=== PATIENT | female | born 1965 | race Caucasian/White ===

== ENCOUNTER → 2016-08-01 | Outpatient (CLI) | payer BC ==
--- NOTE | 2016-08-01 13:05 | US ---
EXAMINATION TYPE: US kidneys/renal and bladder DATE OF EXAM: 08/01/2016 10:44 AM COMPARISON: NONE CLINICAL HISTORY: Renal insufficiency, N28.9. EXAM MEASUREMENTS: Right Kidney: 11.0 x 4.1 x 4.4 cm Left Kidney: 9.2 x 3.8 x 5.3 cm Right Kidney: inferior pole cyst 1.3cm Left Kidney: 0.9cm renal stone seen, 3.4cm hypoechoic, vascular, exophytic lesion seen inferiorly Bladder: wnl Bilateral Jets seen: no There is a simple appearing 1.3 cm cyst arising from the lower pole of the right kidney. There is a 9 .3 mm calculus seen in the lower pole of the left kidney. There is no evidence of hydronephrosis. The re is a 3.4 cm solid, vascular, exophytic lesion is seen arising in the lower pole of the left kidney . This is suspicious for malignancy. Neither ureteral jet was visualized. IMPRESSION: 1. SIMPLE APPEARING 1.3 CM RIGHT LOWER POLE RENAL CYST. 2. 9.3 MM, NONOBSTRUCTING LEFT RENAL CALCULUS. 3. 3.4 CM SOLID MASS ARISING FROM THE LOWER POLE OF THE LEFT KIDNEY, SUSPICIOUS FOR MALIGNANCY.
== END ==
LOC: RADUSWWP 10:26
PROVIDERS: ATTEND Family Medicine
DX: N20.0 Calculus of kidney (principal); N28.1 Cyst of kidney, acquired; N28.9 Disorder of kidney and ureter, unspecified
CPT/HCPCS: 76770

== ENCOUNTER → 2016-08-09 | Outpatient (CLI) | payer BC ==
--- NOTE | 2016-08-09 09:01 | CT ---
EXAMINATION TYPE: CT ChestAbdPelvis wo con DATE OF EXAM: 08/09/2016 8:47 AM COMPARISON: Previous ultrasound examination dated 08/01/2016. HISTORY: Lung mass and Lt renal mass CT DLP: 1090 mGycm Automated exposure control for dose reduction was used. TECHNIQUE: Helical acquisition through the abdomen and pelvis was obtained without oral contrast or i ntravenous contrast. The data was formatted in the axial, coronal and sagittal projections. FINDINGS: There is some atelectasis in the right middle lobe. There are emphysematous changes through out the lungs. There is atelectasis at the left lung base. There is no significant axillary, internal mammary, mediastinal or hilar adenopathy. There is no pleu ral or pericardial fluid. The heart is not enlarged. Within the abdomen, the liver, spleen and gallbladder appear normal. Both adrenal glands appear normal. There are multiple renal calculi on the left. No of these are obstructing. The largest is in the ante rior middle pole calyx and measures 6 mm. There is a 1.6 cm hyperdense lesion in the upper pole of th e left kidney. There is also a 3.4 x 3.4 x 2.9 cm solid mass arising from the lower pole of the left kidney. The right kidney appears normal. Limited views of the pancreas are normal. There is no significant retroperitoneal, iliac or inguinal adenopathy. The uterus and ovaries are not visualized. The bladder is unremarkable. Both the large and small bowel appear normal. The appendix is normal. There is no free fluid and no free air identified. There is hypertrophic spondylosis within the lumbar spine. No bony destructive lesion is seen. IMPRESSION: 1. 3.4 CM SOLID-APPEARING MASS ARISING FROM THE LOWER POLE OF THE LEFT KIDNEY. 2. HYPERDENSE LESION IN THE UPPER POLE OF THE LEFT KIDNEY MEASURING 1.6 CM. 3. NONOBSTRUCTING LEFT-SIDED NEPHROLITHIASIS. 4. EMPHYSEMATOUS CHANGES THROUGHOUT THE LUNGS. 5. MILD DEGENERATIVE CHANGE WITHIN THE SPINE.
== END | disposition home or self-care (01) ==
LOC: RADCTMAIN 07:56
PROVIDERS: ATTEND Family Medicine
DX: R91.8 Other nonspecific abnormal finding of lung field (principal); N20.0 Calculus of kidney; N28.89 Other specified disorders of kidney and ureter
CPT/HCPCS: 71250; 74176

== ENCOUNTER → 2016-08-26 | Outpatient (CLI) | payer BC ==
--- NOTE | 2016-08-27 16:19 | MR ---
MR kidneys with and without contrast HISTORY: Left renal mass Correlation to ultrasound kidneys 01 August 2016, CT chest abdomen pelvis one August 2016 Multiplanar multisequence and postcontrast images obtained through the kidneys following 12 cc MultiH ance IV The hyperdense cyst seen within the left kidney at the upper pole anteriorly in an exophytic location measuring approximately 19 mm shows no abnormal enhancement, there is a small cystic focus immediate ly adjacent measuring 8 mm which shows increased signal on T2-weighted images. Increased signal is no lon on T1-weighted images, low signal on T2-weighted sequences within the larger cyst. Lower pole of the left kidney shows caliectasis as well as scarring, there is an associated cyst measuring 9 mm med ially. The lower pole simple cyst in the right kidney is noted measuring approximately 13 to 14 mm and corre lates with patient's ultrasound. Small exophytic simple cyst present at the upper pole of the left ki dney adjacent to the spleen measures 1 cm. There is no retroperitoneal adenopathy. Aorta shows normal caliber. The adrenal glands are unremarkab le. Pancreas is within normal limits. The spleen and liver are normal. Gallbladder is unremarkable. IMPRESSION: There is no renal mass at the lower pole of left kidney. Scarring is present in the lower pole of the left kidney, there is associated caliectasis. Patient's renal calculi cannot evident on MRI. Anteriorly within the left kidney there is a probable proteinaceous cyst. There are associated s imple cysts within the kidneys. Consider follow-up to assess for stability.
== END | disposition home or self-care (01) ==
LOC: RADMRIMAIN 12:32
PROVIDERS: ATTEND Urology
DX: R93.422 Abnormal radiologic findings on diagnostic imaging of left kidney (principal)
CPT/HCPCS: 74183; A9577

== ENCOUNTER 2018-08-15 12:38 | Observation (INO) | payer OTHER ==
[2018-08-15] MEDS ORDERED: SODIUM CHLORIDE 0.9% 1,000 ML IV STA (13:04)
[2018-08-15] MEDS ORDERED: MAG HYDROX/AL HYDROX/SIMETH 30 ML, HYOSCYAMINE ELIXIR 10 ML, CIMETIDINE HCL 300 MG PO STA ×3 (13:05)
--- NOTE | 2018-08-15 13:07 | ED ---
General Adult HPI - General Chief complaint: Chest Pain Stated complaint: Chest pain Time Seen by Provider: 08/15/18 13:00 Source: patient, RN notes reviewed, old records reviewed Mode of arrival: wheelchair Limitations: no limitations - History of Present Illness Initial comments: 52-year-old female presented for evaluation of chest pain and lightheadedness. Patient's symptoms began approximately 2 hours prior to arrival. She was drinking a smoothie, developed some chest pain and epigastric pain. Shortly after the onset of her symptoms she became lightheaded. Had some nausea. Denied any vomiting. Denied any preceding symptoms, no palpitations. She states the pain moved from her sent over chest to the left side of her chest. No other pain. Symptoms have resolved at the time my evaluation with the exception of some lightheadedness. She has no history of CAD. Denies dyspnea. Denies right upper quadrant pain. No lower extremity pain or swelling. - Related Data Home Medications Medication Instructions Recorded Confirmed prednisoLONE [prednisoLONE Oral 1 drop BOTH EYES Q2H PRN 08/15/18 08/15/18 Soln] Allergies Allergy/AdvReac Type Severity Reaction Status Date / Time No Known Allergies Allergy Verified 08/15/18 14:29 Review of Systems ROS Statement: Those systems with pertinent positive or pertinent negative responses have been documented in the HPI. ROS Other: All systems not noted in ROS Statement are negative. Past Medical History Additional Past Medical History / Comment(s): MS History of Any Multi-Drug Resistant Organisms: None Reported Past Surgical History: Section, Hysterectomy Past Psychological History: No Psychological Hx Reported Smoking Status: Current every day smoker Past Alcohol Use History: None Reported Past Drug Use History: Marijuana General Exam Limitations: no limitations General appearance: alert, in no apparent distress Head exam: Present: atraumatic, normocephalic Eye exam: Present: normal appearance, PERRL ENT exam: Present: normal exam Neck exam: Present: normal inspection. Absent: tenderness, meningismus, full ROM Respiratory exam: Present: normal lung sounds bilaterally. Absent: respiratory distress, wheezes Cardiovascular Exam: Present: normal rhythm, bradycardia GI/Abdominal exam: Present: soft. Absent: distended, tenderness, guarding Extremities exam: Present: normal inspection, normal capillary refill. Absent: pedal edema, calf tenderness Neurological exam: Present: alert, oriented X3, CN II-XII intact. Absent: motor sensory deficit Psychiatric exam: Present: normal affect, normal mood Skin exam: Present: warm, dry, intact. 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 EKG is sinus bradycardia, no definitive signs of ischemia. Chest x-ray negative for any acute cardio pulmonary disease. Patient has normal CBC, CMP did show an elevated creatinine 1.6 with no known baseline. Troponin is negative. Patient will be kept in observation for serial clinic enzymes, telemetry, cardiology consultation. Case discussed with admitting physician Dr. Rodriguez. - Lab Data Result diagrams: 08/15/18 13:25 08/15/18 13:25 Lab Results 08/15/18 08/15/18 08/15/18 Range/Units 13:25 13:25 13:25 WBC 5.7 (3.8-10.6) k/uL RBC 4.29 (3.80-5.40) m/uL Hgb 13.1 (11.4-16.0) gm/dL Hct 38.4 (34.0-46.0) % MCV 89.5 (80.0-100.0) fL MCH 30.5 (25.0-35.0) pg MCHC 34.1 (31.0-37.0) g/dL RDW 16.4 H (11.5-15.5) % Plt Count 313 (150-450) k/uL Neutrophils % 50 % Lymphocytes % 32 % Monocytes % 12 % Eosinophils % 3 % Basophils % 1 % Neutrophils # 2.9 (1.3-7.7) k/uL Lymphocytes # 1.8 (1.0-4.8) k/uL Monocytes # 0.7 (0-1.0) k/uL Eosinophils # 0.2 (0-0.7) k/uL Basophils # 0.0 (0-0.2) k/uL Anisocytosis Slight PT (9.0-12.0) sec INR (<1.2) APTT (22.0-30.0) sec Sodium 140 (137-145) mmol/L Potassium 4.1 (3.5-5.1) mmol/L Chloride 106 (98-107) mmol/L Carbon Dioxide 25 (22-30) mmol/L Anion Gap 9 mmol/L BUN 24 H (7-17) mg/dL Creatinine 1.61 H (0.52-1.04) mg/dL Est GFR (CKD-EPI)AfAm 43 (>60 ml/min/1.73 sqM) Est GFR (CKD-EPI)NonAf 37 (>60 ml/min/1.73 sqM) Glucose 78 (74-99) mg/dL Calcium 9.8 (8.4-10.2) mg/dL Magnesium 2.0 (1.6-2.3) mg/dL Total Bilirubin 1.0 (0.2-1.3) mg/dL AST 28 (14-36) U/L ALT 35 (9-52) U/L Alkaline Phosphatase 89 (38-126) U/L Troponin I (0.000-0.034) ng/mL NT-Pro-B Natriuret Pep 354 pg/mL Total Protein 7.6 (6.3-8.2) g/dL Albumin 4.3 (3.5-5.0) g/dL Lipase 169 (23-300) U/L 08/15/18 08/15/18 Range/Units 13:25 13:25 WBC (3.8-10.6) k/uL RBC (3.80-5.40) m/uL Hgb (11.4-16.0) gm/dL Hct (34.0-46.0) % MCV (80.0-100.0) fL MCH (25.0-35.0) pg MCHC (31.0-37.0) g/dL RDW (11.5-15.5) % Plt Count (150-450) k/uL Neutrophils % % Lymphocytes % % Monocytes % % Eosinophils % % Basophils % % Neutrophils # (1.3-7.7) k/uL Lymphocytes # (1.0-4.8) k/uL Monocytes # (0-1.0) k/uL Eosinophils # (0-0.7) k/uL Basophils # (0-0.2) k/uL Anisocytosis PT 10.6 (9.0-12.0) sec INR 1.0 (<1.2) APTT 28.3 (22.0-30.0) sec Sodium (137-145) mmol/L Potassium (3.5-5.1) mmol/L Chloride (98-107) mmol/L Carbon Dioxide (22-30) mmol/L Anion Gap mmol/L BUN (7-17) mg/dL Creatinine (0.52-1.04) mg/dL Est GFR (CKD-EPI)AfAm (>60 ml/min/1.73 sqM) Est GFR (CKD-EPI)NonAf (>60 ml/min/1.73 sqM) Glucose (74-99) mg/dL Calcium (8.4-10.2) mg/dL Magnesium (1.6-2.3) mg/dL Total Bilirubin (0.2-1.3) mg/dL AST (14-36) U/L ALT (9-52) U/L Alkaline Phosphatase (38-126) U/L Troponin I <0.012 (0.000-0.034) ng/mL NT-Pro-B Natriuret Pep pg/mL Total Protein (6.3-8.2) g/dL Albumin (3.5-5.0) g/dL Lipase (23-300) U/L Disposition Clinical Impression: Chest pain Disposition: HOME SELF-CARE Condition: Stable Is patient prescribed a controlled substance at d/c from ED?: No Referrals: Heide Ocampo MD [Primary Care Provider] - 1-2 days Decision to Admit Reason: Admit from EC Decision Date: 08/15/18 Decision Time: 15:23
[2018-08-15 13:50] LABS: Anisocytosis Slight; Basophils % (A) 1 %; Eosinophils # (A) 0.2 k/uL (0-0.7); Eosinophils % (A) 3 %; HCT 38.4 % (34.0-46.0); HGB 13.1 gm/dL (11.4-16.0); Lymphocytes # (A) 1.8 k/uL (1.0-4.8); Lymphocytes % (A) 32 %; MCH 30.5 pg (25.0-35.0); MCHC 34.1 g/dL (31.0-37.0); MCV 89.5 fL (80.0-100.0); Mean Platelet Volume 10.4; Monocytes # (A) 0.7 k/uL (0-1.0); Monocytes % (A) 12 %; Neutrophils # (A) 2.9 k/uL (1.3-7.7); Neutrophils % (A) 50 %; Platelet Count 313 k/uL (150-450); RBC 4.29 m/uL (3.80-5.40); RDW 16.4 % (11.5-15.5); WBC 5.7 k/uL (3.8-10.6)
[2018-08-15 14:01] LABS: Albumin 4.3 g/dL (3.5-5.0); Calcium 9.8 mg/dL (8.4-10.2); Potassium 4.1 mmol/L (3.5-5.1); Total Protein 7.6 g/dL (6.3-8.2)
[2018-08-15 14:04] LABS: Partial Thromboplastin Time 28.3 sec (22.0-30.0); Prothrombin Time 10.6 sec (9.0-12.0)
--- NOTE | 2018-08-15 14:06 | XR ---
EXAMINATION TYPE: XR chest 2V DATE OF EXAM: 08/15/2018 HISTORY: Chest Pain. REFERENCE: Previous study dated 12/03/2011. FINDINGS: The lungs are clear. Pleural space are clear. The heart is not enlarged. IMPRESSION: NORMAL CHEST.
[2018-08-15] MEDS ORDERED: NALOXONE 0.4 MG/ML 1 ML VIAL IV PRN (15:08)
[2018-08-15] MEDS ORDERED: ACETAMINOPHEN TAB 325 MG TAB PO PRN (15:08)
[2018-08-15] MEDS ORDERED: ASPIRIN 325 MG TAB PO STA (15:10)
[2018-08-15] MEDS ORDERED: prednisoLONE ORAL SOLUTION 15MG/5ML CUP PO PRN (17:31)
[2018-08-15] MEDS ORDERED: prednisoLONE ACETATE 1% OPHTH DROPS 5 ML BTL BOTH EYES PRN (17:37)
[2018-08-15] MEDS: NICOTINE 14MG/24HR PATCH TRANSDERM SCH (18:07)
--- NOTE | 2018-08-16 07:02 | P.CRDCN ---
History of Present Illness Consult date: 08/16/18 Chief complaint: Chest pain History of present illness: This is a pleasant 52-year-old female patient with significant history of smoking and also history of kidney mass presented to the hospital complaining of chest discomfort. She was in her usual state of health when she woke up yesterday morning and was drinking smoothly when she started experiencing discomfort in the epigastric area as well as lower chest with some radiation to the back. She described the discomfort as a pressure/heaviness on the chest without any associated symptoms of shortness of breath, sweating, dizziness or lightheadedness, or syncope. She presented to the emergency room where at that point she was in mild discomfort and she was given aspirin with mild improvement in her symptoms. The EKG showed sinus bradycardia. The cardiac enzymes were checked and came in to be unremarkable. The chest x-ray did not show any acute abnormalities. The blood work indicate low GFR. The patient stated that she was diagnosed with kidney mass in the past and she was told that it was cured and she supposed to follow with a urologist but she did not follow up with anybody. On physical examination, the patient does have epigastric tenderness as well as right upper quadrant tenderness. I am ruling out intra-abdominal process before we rule out severe underlying coronary artery disease. Past Medical History Additional Past Medical History / Comment(s): MS History of Any Multi-Drug Resistant Organisms: None Reported Past Surgical History: Section, Hysterectomy Past Psychological History: No Psychological Hx Reported Smoking Status: Current every day smoker Past Alcohol Use History: None Reported Past Drug Use History: Marijuana Medications and Allergies Home Medications Medication Instructions Recorded Confirmed Type prednisoLONE [prednisoLONE Oral 1 drop BOTH EYES Q2H PRN 08/15/18 08/15/18 History Soln] Allergies Allergy/AdvReac Type Severity Reaction Status Date / Time No Known Allergies Allergy Verified 08/15/18 14:29 Physical Exam Vitals: Vital Signs Temp Pulse Pulse Pulse Resp BP BP 08/16/18 03:50 98.0 F 51 L 16 98/53 08/16/18 03:30 52 L 16 08/16/18 00:00 98.2 F 53 L 16 107/69 08/15/18 20:00 98.4 F 59 L 16 111/56 08/15/18 16:30 98.0 F 56 L 45 L 18 131/78 133/83 08/15/18 14:38 42 L 16 131/80 08/15/18 12:55 50 L 18 08/15/18 12:40 97.6 F 50 L 18 158/77 Pulse Ox 08/16/18 03:50 97 08/16/18 03:30 08/16/18 00:00 99 08/15/18 20:00 96 08/15/18 16:30 98 08/15/18 14:38 100 08/15/18 12:55 08/15/18 12:40 100 Intake and Output 08/15/18 08/15/18 08/16/18 14:59 22:59 06:59 Other: Voiding Method Toilet Toilet # Voids 1 1 Weight 54.431 kg - Constitutional General appearance: no acute distress - Respiratory Respiratory: bilateral: CTA - Cardiovascular Rhythm: regular Heart sounds: normal: S1, S2 Results 08/15/18 13:25 08/15/18 13:25 Cardiac Enzymes 08/15/18 08/15/18 08/15/18 Range/Units 13:25 13:25 20:08 AST 28 (14-36) U/L Troponin I <0.012 <0.012 (0.000-0.034) ng/mL 08/16/18 Range/Units 01:28 AST (14-36) U/L Troponin I <0.012 (0.000-0.034) ng/mL Coagulation 08/15/18 Range/Units 13:25 PT 10.6 (9.0-12.0) sec APTT 28.3 (22.0-30.0) sec CBC 08/15/18 Range/Units 13:25 WBC 5.7 (3.8-10.6) k/uL RBC 4.29 (3.80-5.40) m/uL Hgb 13.1 (11.4-16.0) gm/dL Hct 38.4 (34.0-46.0) % Plt Count 313 (150-450) k/uL Comprehensive Metabolic Panel 08/15/18 Range/Units 13:25 Sodium 140 (137-145) mmol/L Potassium 4.1 (3.5-5.1) mmol/L Chloride 106 (98-107) mmol/L Carbon Dioxide 25 (22-30) mmol/L BUN 24 H (7-17) mg/dL Creatinine 1.61 H (0.52-1.04) mg/dL Glucose 78 (74-99) mg/dL Calcium 9.8 (8.4-10.2) mg/dL AST 28 (14-36) U/L ALT 35 (9-52) U/L Alkaline Phosphatase 89 (38-126) U/L Total Protein 7.6 (6.3-8.2) g/dL Albumin 4.3 (3.5-5.0) g/dL Current Medications Generic Name Dose Route Start Last Admin Trade Name Freq PRN Reason Stop Dose Admin Acetaminophen 650 mg 08/15/18 15:08 Tylenol Tab PO Q6HR PRN Mild Pain or Fever > 100.5 Aspirin 325 mg 08/16/18 09:00 Aspirin PO DAILY ARIANNE Naloxone HCl 0.2 mg 08/15/18 15:08 Narcan IV Q2M PRN Opioid Reversal Nicotine 1 patch 08/15/18 17:45 08/15/18 18:07 Habitrol 14mg/24hr Patch TRANSDERM 1 patch DAILY ARIANNE Administration Pantoprazole Sodium 40 mg 08/16/18 09:00 Protonix IV DAILY ARIANNE Prednisolone Acetate 1 drops 08/15/18 17:37 08/15/18 18:07 Pred Forte 1% BOTH EYES 1 drops Q2HR PRN Administration dry eyes Intake and Output 08/15/18 08/15/18 08/16/18 14:59 22:59 06:59 Other: Voiding Method Toilet Toilet # Voids 1 1 Weight 54.431 kg Patient Weight 08/16/18 06:59 Weight 54.431 kg 08/15/18 13:25 08/15/18 13:25 Assessment and Plan Assessment: Assessment #1 atypical chest discomfort/epigastric discomfort #2 significant history of smoking #3 chronic kidney disease Plan #1 acute coronary event was ruled out #2 rule out intra-abdominal/gallbladder disease #3 rule out severe coronary artery disease #4 obtain ultrasound of the abdomen #5 stress test, if the ultrasound of the abdomen is negative #6 echocardiogram was Doppler Thank you for allowing us participate in her care
--- NOTE | 2018-08-16 08:15 | US ---
EXAMINATION TYPE: US gallbladder DATE OF EXAM: 08/16/2018 COMPARISON: NONE CLINICAL HISTORY: epigastric pain. Epigastric pain, nausea EXAM MEASUREMENTS: Liver Length: 14.4 cm Gallbladder Wall: 0.3 cm CBD: 0.3 cm Right Kidney: 10.5 x 4.2 x 5.0 cm Pancreas: slightly heterogeneous Liver: appears wnl Gallbladder: thick folds noted with possible sludge Evidence for sonographic Khoury's sign: no CBD: wnl Right Kidney: cystic area lower pole = 0.9 x 0.6 x 0.7cm IMPRESSION: 1. Thickened gallbladder folds with underlying sludge. No wall thickening or pericholecystic fluid id entified. 2. Simple cyst right kidney.
[2018-08-16 09:10] LABS: Basophils % (A) 1 %; Eosinophils # (A) 0.3 k/uL (0-0.7); Eosinophils % (A) 5 %; HCT 36.9 % (34.0-46.0); Lymphocytes # (A) 1.4 k/uL (1.0-4.8); Lymphocytes % (A) 25 %; MCH 30.4 pg (25.0-35.0); MCHC 32.6 g/dL (31.0-37.0); MCV 93.3 fL (80.0-100.0); Mean Platelet Volume 7.1; Monocytes # (A) 0.6 k/uL (0-1.0); Monocytes % (A) 10 %; Neutrophils # (A) 3.4 k/uL (1.3-7.7); Neutrophils % (A) 58 %; Platelet Count 296 k/uL (150-450); RBC 3.95 m/uL (3.80-5.40); RDW 13.8 % (11.5-15.5); WBC 5.8 k/uL (3.8-10.6)
[2018-08-16 09:25] LABS: Calcium 9.9 mg/dL (8.4-10.2); Potassium 5.2 mmol/L (3.5-5.1); Total Bilirubin 0.8 mg/dL (0.2-1.3); Total Protein 7.2 g/dL (6.3-8.2)
[2018-08-16] MEDS ORDERED: SODIUM POLYSTYRENE SULFONATE 15 GM/60 ML BOTTLE PO STA (10:49)
[2018-08-16] MEDS ORDERED: ONDANSETRON 4 MG/2 ML VIAL IVP PRN (10:51)
--- NOTE | 2018-08-16 10:59 | P.HPIM ---
History of Present Illness H&P Date: 08/16/18 This is a 52-year-old female patient of Dr. Ocampo. Patient presented to the ER with complaints of lightheadedness and upper gastric chest pain. Patient reports that symptoms started approximately 2 hours before arriving to ER was consistent. Patient reports the pain felt like a pressure and radiated under her rib cage to back. Patient does reports she had some nausea with episode. Patient denies any diaphoresis. She denies any recent cough or illness. Patient denies any significant cardiac history for herself. Patient denies any family history of heart attacks or cardiac conditions. Patient denies any history of blood clots. Patient does have a past medical history of , hysterectomy, nicotine dependence multiple sclerosis. Patient does believe she was seen by loop puller in the past, but patient unsure of the details of her kidneys. Troponins have been negative 3. Chest x-ray completed showing normal chest. EKG completed showing sinus bradycardia with premature atrial complexes with aberrant conduction. Ultrasound of gallbladder completed showing thickened gallbladder folds with underlining sludge. No wall thickening or pericholecystic fluid identified. Simple cyst right kidney. At this time patient denies any chest pain or shortness of breath. Patient denies nausea vomiting or diarrhea. Patient denies any urinary burning or frequency. Surgical services and cardiology services consulted Review of Systems Please refer to HPI otherwise unremarkable Past Medical History Additional Past Medical History / Comment(s): MS History of Any Multi-Drug Resistant Organisms: None Reported Past Surgical History: Section, Hysterectomy Past Psychological History: No Psychological Hx Reported Smoking Status: Current every day smoker Past Alcohol Use History: None Reported Past Drug Use History: Marijuana Medications and Allergies Home Medications Medication Instructions Recorded Confirmed Type prednisoLONE [prednisoLONE Oral 1 drop BOTH EYES Q2H PRN 08/15/18 08/15/18 Hist ory Soln] Allergies Allergy/AdvReac Type Severity Reaction Status Date / Time No Known Allergies Allergy Verified 08/15/18 14:29 Physical Exam Vitals: Vital Signs Temp Pulse Pulse Pulse Resp BP BP 08/16/18 07:05 97.7 F 57 L 16 126/45 08/16/18 03:50 98.0 F 51 L 16 98/53 08/16/18 03:30 52 L 16 08/16/18 00:00 98.2 F 53 L 16 107/69 08/15/18 20:00 98.4 F 59 L 16 111/56 08/15/18 16:30 98.0 F 56 L 45 L 18 131/78 133/83 08/15/18 14:38 42 L 16 131/80 08/15/18 12:55 50 L 18 08/15/18 12:40 97.6 F 50 L 18 158/77 Pulse Ox 08/16/18 07:05 98 08/16/18 03:50 97 08/16/18 03:30 08/16/18 00:00 99 08/15/18 20:00 96 08/15/18 16:30 98 08/15/18 14:38 100 08/15/18 12:55 08/15/18 12:40 100 Intake and Output 08/15/18 08/16/18 08/16/18 22:59 06:59 14:59 Other: Voiding Method Toilet Toilet Toilet # Voids 1 1 Head normocephalic Neck supple Lungs clear to auscultation bilaterally no wheezing or crackles Heart regular rate and rhythm S1-S2, no rub or gallop Abdomen is soft nontender nondistended positive bowel sounds no hepatosplenomegaly Extremities no edema Neuro alert and orientated to 3 Results CBC & Chem 7: 08/16/18 08:30 08/16/18 08:30 Labs: Abnormal Lab Results - Last 24 Hours (Table) 08/15/18 08/15/18 08/16/18 Range/Units 13:25 13:25 08:30 RDW 16.4 H (11.5-15.5) % Potassium 5.2 H (3.5-5.1) mmol/L Chloride 108 H (98-107) mmol/L BUN 24 H 26 H (7-17) mg/dL Creatinine 1.61 H 1.64 H (0.52-1.04) mg/dL Thrombosis Risk Factor Assmnt - Choose All That Apply Any of the Below Risk Factors Present?: Yes Each Factor Represents 1 point: Age 41-60 years Other Risk Factors: No Thrombosis Risk Factor Assessment Total Risk Factor Score: 1 Thrombosis Risk Factor Assessment Level: Low Risk Assessment and Plan Assessment: 1. Chest pain with epigastric pain. Troponins negative 3. Chest x-ray completed showing normal chest. EKG completed showing sinus bradycardia with premature atrial complexes with aberrant conduction. Cardiology services have been consulted. Gallbladder ultrasound showing thickened gallbladder fold underlying sludge. No wall thickening or pericholecystic fluid identified. 2. Acute kidney injury. Creatinine 1.64 and bun 26. Patient reports she has seen a loop puller in the past but unsure for what exact issues. Continue normal saline at 75 3. Hyperkalemia. Potassium 5.2. Kayexalate has been ordered recheck today at 1400 4. History of multiple sclerosis. Patient denies seen any neurologist at this time. Reports she has seen one in the past 5. History of 6. History of nicotine dependence. Patient educated greater than 3 minutes on smoking patient. Nicotine patch has been ordered DVT prophylaxis SCDs due to possible surgical evaluation. GI prophylaxis Protonix Time with Patient: Greater than 30 (Greater than 60% of the total time spent in counseling and coordination of care. I performed an examination of the patient and discussed their management with the Nurse Practitioner. I have reviewed the Nurse Practitioner's notes and agree with the documented findings and plan of care)
[2018-08-16] MEDS: ASPIRIN 325 MG TAB PO SCH (11:05)
[2018-08-16] MEDS: SODIUM CHLORIDE 0.9% 1,000 ML IV SCH (11:12)
[2018-08-16] MEDS: NICOTINE 14MG/24HR PATCH TRANSDERM SCH (11:12)
[2018-08-16] MEDS: PANTOPRAZOLE 40 MG/10 ML VIAL IV SCH (11:12)
--- NOTE | 2018-08-16 12:08 | P.GSCN ---
<Nilda Ruiz - Last Filed: 08/16/18 12:08> History of Present Illness Consult date: 08/16/18 Reason for Consult: sludge in gallbladder Requesting physician: Davida Calero History of present illness: CHIEF COMPLAINT: Chest pain HISTORY OF PRESENT ILLNESS: 52-year-old female who presented to emergency room with a chief complaint of chest pain. Abdominal ultrasound was obtained revealing thickened gallbladder fold with underlying sludge. No wall thickening or periholecystic fluid identified. General surgery was consulted for further evaluation. Patient reports she began having epigastric pain that radiated to the left side of her chest after drinking some juice at home. She denies abdominal pain. Denies right upper quadrant pain. Denies nausea or vomiting. Denies diarrhea or constipation. Patient denies history of gallbladder problems in the past. Denies history of EGD. PAST MEDICAL HISTORY: See list. PAST SURGICAL HISTORY: See list. SOCIAL HISTORY: No illicit drug use. REVIEW OF SYSTEMS: CONSTITUTIONAL: Denies fever or chills. HEENT: Denies blurred vision, vision changes, or eye pain. Denies hemoptysis CARDIOVASCULAR: Denies chest pain or pressure. RESPIRATORY: No shortness of breath. GASTROINTESTINAL: Refer to HPI for pertinent findings HEMATOLOGIC: Denies bleeding disorders. GENITOURINARY: Denies any blood in urine. SKIN: Denies pruitis. Denies rash. PHYSICAL EXAM: VITAL SIGNS: Reviewed. GENERAL: Well-developed in no acute distress. HEENT: No sclera icterus. Extraocular movements grossly intact. Moist buccal mucosa. Head is atraumatic, normocephalic. ABDOMEN: Soft. Nondistended. Nontender. Tenderness upon palpation of epigastri c region. NEUROLOGIC: Alert and oriented. Cranial nerves II through XII grossly intact. ASSESSMENT: 1. Epigastric pain 2. Gallbladder dysfunction, US reveals thickened gallbladder fold with underlying sludge PLAN: Patient to undergo laparoscopic cholecystectomy with Dr. Judge tomorrow 08/17/2017 Nurse practitioner note has been reviewed by physician. Signing provider agrees with the documented findings, assessment, and plan of care. Past Medical History Additional Past Medical History / Comment(s): MS History of Any Multi-Drug Resistant Organisms: None Reported Past Surgical History: Section, Hysterectomy Past Psychological History: No Psychological Hx Reported Smoking Status: Current every day smoker Past Alcohol Use History: None Reported Past Drug Use History: Marijuana Medications and Allergies Home Medications Medication Instructions Recorded Confirmed Type prednisoLONE [prednisoLONE Oral 1 drop BOTH EYES Q2H PRN 08/15/18 08/15/18 History Soln] Allergies Allergy/AdvReac Type Severity Reaction Status Date / Time No Known Allergies Allergy Verified 08/15/18 14:29 Surgical - Exam Vital Signs Temp Pulse Resp BP Pulse Ox 97.6 F 50 L 18 158/77 100 08/15/18 12:40 08/15/18 12:40 08/15/18 12:40 08/15/18 12:40 08/15/18 12:40 Results - Labs 08/16/18 08:30 08/16/18 08:30 Abnormal Lab Results - Last 24 Hours (Table) 08/15/18 08/15/18 08/16/18 Range/Units 13:25 13:25 08:30 RDW 16.4 H (11.5-15.5) % Potassium 5.2 H (3.5-5.1) mmol/L Chloride 108 H (98-107) mmol/L BUN 24 H 26 H (7-17) mg/dL Creatinine 1.61 H 1.64 H (0.52-1.04) mg/dL Diabetes panel 08/15/18 08/16/18 Range/Units 13:25 08:30 Sodium 140 141 (137-145) mmol/L Potassium 4.1 5.2 H (3.5-5.1) mmol/L Chloride 106 108 H (98-107) mmol/L Carbon Dioxide 25 25 (22-30) mmol/L BUN 24 H 26 H (7-17) mg/dL Creatinine 1.61 H 1.64 H (0.52-1.04) mg/dL Glucose 78 86 (74-99) mg/dL Calcium 9.8 9.9 (8.4-10.2) mg/dL AST 28 26 (14-36) U/L ALT 35 29 (9-52) U/L Alkaline Phosphatase 89 84 (38-126) U/L Total Protein 7.6 7.2 (6.3-8.2) g/dL Albumin 4.3 4.0 (3.5-5.0) g/dL Calcium panel 08/15/18 08/16/18 Range/Units 13:25 08:30 Calcium 9.8 9.9 (8.4-10.2) mg/dL Albumin 4.3 4.0 (3.5-5.0) g/dL Pituitary panel 08/15/18 08/16/18 Range/Units 13:25 08:30 Sodium 140 141 (137-145) mmol/L Potassium 4.1 5.2 H (3.5-5.1) mmol/L Chloride 106 108 H (98-107) mmol/L Carbon Dioxide 25 25 (22-30) mmol/L BUN 24 H 26 H (7-17) mg/dL Creatinine 1.61 H 1.64 H (0.52-1.04) mg/dL Glucose 78 86 (74-99) mg/dL Calcium 9.8 9.9 (8.4-10.2) mg/dL Adrenal panel 08/15/18 08/16/18 Range/Units 13:25 08:30 Sodium 140 141 (137-145) mmol/L Potassium 4.1 5.2 H (3.5-5.1) mmol/L Chloride 106 108 H (98-107) mmol/L Carbon Dioxide 25 25 (22-30) mmol/L BUN 24 H 26 H (7-17) mg/dL Creatinine 1.61 H 1.64 H (0.52-1.04) mg/dL Glucose 78 86 (74-99) mg/dL Calcium 9.8 9.9 (8.4-10.2) mg/dL Total Bilirubin 1.0 0.8 (0.2-1.3) mg/dL AST 28 26 (14-36) U/L ALT 35 29 (9-52) U/L Alkaline Phosphatase 89 84 (38-126) U/L Total Protein 7.6 7.2 (6.3-8.2) g/dL Albumin 4.3 4.0 (3.5-5.0) g/dL <Antonino Judge - Last Filed: 08/17/18 11:31> Surgical - Exam Vital Signs Temp Pulse Resp BP Pulse Ox 97.6 F 50 L 18 158/77 100 08/15/18 12:40 08/15/18 12:40 08/15/18 12:40 08/15/18 12:40 08/15/18 12:40 Results - Labs 08/17/18 06:11 08/17/18 06:11 Abnormal Lab Results - Last 24 Hours (Table) 08/17/18 08/17/18 Range/Units 06:11 06:11 RBC 3.74 L (3.80-5.40) m/uL Hgb 11.3 L (11.4-16.0) gm/dL Chloride 112 H (98-107) mmol/L BUN 22 H (7-17) mg/dL Creatinine 1.59 H (0.52-1.04) mg/dL Diabetes panel 08/16/18 08/17/18 Range/Units 14:03 06:11 Sodium 142 (137-145) mmol/L Potassium 4.6 4.5 (3.5-5.1) mmol/L Chloride 112 H (98-107) mmol/L Carbon Dioxide 24 (22-30) mmol/L BUN 22 H (7-17) mg/dL Creatinine 1.59 H (0.52-1.04) mg/dL Glucose 88 (74-99) mg/dL Calcium 9.2 (8.4-10.2) mg/dL AST 23 (14-36) U/L ALT 29 (9-52) U/L Alkaline Phosphatase 77 (38-126) U/L Total Protein 6.6 (6.3-8.2) g/dL Albumin 3.5 (3.5-5.0) g/dL Calcium panel 08/17/18 Range/Units 06:11 Calcium 9.2 (8.4-10.2) mg/dL Albumin 3.5 (3.5-5.0) g/dL Pituitary panel 08/16/18 08/17/18 Range/Units 14:03 06:11 Sodium 142 (137-145) mmol/L Potassium 4.6 4.5 (3.5-5.1) mmol/L Chloride 112 H (98-107) mmol/L Carbon Dioxide 24 (22-30) mmol/L BUN 22 H (7-17) mg/dL Creatinine 1.59 H (0.52-1.04) mg/dL Glucose 88 (74-99) mg/dL Calcium 9.2 (8.4-10.2) mg/dL Adrenal panel 08/16/18 08/17/18 Range/Units 14:03 06:11 Sodium 142 (137-145) mmol/L Potassium 4.6 4.5 (3.5-5.1) mmol/L Chloride 112 H (98-107) mmol/L Carbon Dioxide 24 (22-30) mmol/L BUN 22 H (7-17) mg/dL Creatinine 1.59 H (0.52-1.04) mg/dL Glucose 88 (74-99) mg/dL Calcium 9.2 (8.4-10.2) mg/dL Total Bilirubin 0.7 (0.2-1.3) mg/dL AST 23 (14-36) U/L ALT 29 (9-52) U/L Alkaline Phosphatase 77 (38-126) U/L Total Protein 6.6 (6.3-8.2) g/dL Albumin 3.5 (3.5-5.0) g/dL Assessment and Plan Assessment: Chronic cholecystitis with cholelithiasis and sludge. Patient will undergo laparoscopic cholecystectomy..
[2018-08-17] MEDS: SODIUM CHLORIDE 0.9% 1,000 ML IV SCH ×2 (00:50→13:46)
[2018-08-17 06:43] LABS: Albumin 3.5 g/dL (3.5-5.0); Calcium 9.2 mg/dL (8.4-10.2); Potassium 4.5 mmol/L (3.5-5.1); Total Bilirubin 0.7 mg/dL (0.2-1.3); Total Protein 6.6 g/dL (6.3-8.2)
[2018-08-17 08:46] LABS: Basophils % (A) 0 %; Eosinophils # (A) 0.3 k/uL (0-0.7); Eosinophils % (A) 5 %; HCT 34.9 % (34.0-46.0); HGB 11.3 gm/dL (11.4-16.0); Lymphocytes # (A) 1.6 k/uL (1.0-4.8); Lymphocytes % (A) 31 %; MCH 30.3 pg (25.0-35.0); MCHC 32.5 g/dL (31.0-37.0); MCV 93.4 fL (80.0-100.0); Mean Platelet Volume 8.2; Monocytes # (A) 0.7 k/uL (0-1.0); Monocytes % (A) 14 %; Neutrophils # (A) 2.5 k/uL (1.3-7.7); Neutrophils % (A) 47 %; Platelet Count 294 k/uL (150-450); RBC 3.74 m/uL (3.80-5.40); RDW 13.9 % (11.5-15.5); WBC 5.2 k/uL (3.8-10.6)
[2018-08-17] MEDS ORDERED: IV FLUID CONTINUATION 1,000 ML IV ONE (10:37)
[2018-08-17] MEDS ORDERED: CITRIC ACID-SODIUM CITRATE 15 ML CUP PO ONE (10:53)
[2018-08-17] MEDS: ASPIRIN 325 MG TAB PO SCH (10:58)
[2018-08-17] MEDS: PANTOPRAZOLE 40 MG/10 ML VIAL IV SCH (10:58)
[2018-08-17] MEDS ORDERED: DEXAMETHASONE SOD PHOSPHATE 10 MG/ML 1 ML VIAL IV ONE (11:14)
[2018-08-17] MEDS: ONDANSETRON 4 MG/2 ML VIAL IVP ONE ×2 (11:14→13:00)
--- NOTE | 2018-08-17 11:30 | P.PN ---
Progress Note - Text Progress Note Date: 08/17/18 Patient states that she had some complaints of right quadrant pain last night. Patient will undergo laparoscopic cholecystectomy today.
[2018-08-17] MEDS ORDERED: HEPARIN SODIUM,PORCINE 5,000 UNIT/ML 1 ML VIAL SQ ONE (11:35)
[2018-08-17] MEDS ORDERED: ceFAZolin (PMX-bag) 2,000 MG in DEXTROSE/WATER 1 50ML.BAG IVPB STA (11:40)
--- NOTE | 2018-08-17 11:44 | P.PN ---
Subjective Progress Note Date: 08/17/18 This is a 52-year-old female patient of Dr. Ocampo. Patient presented to the ER with complaints of lightheadedness and upper gastric chest pain. Patient reports that symptoms started approximately 2 hours before arriving to ER was consistent. Patient reports the pain felt like a pressure and radiated under her rib cage to back. Patient does reports she had some nausea with episode. Patient denies any diaphoresis. She denies any recent cough or illness. Patient denies any significant cardiac history for herself. Patient denies any family history of heart attacks or cardiac conditions. Patient denies any history of blood clots. Patient does have a past medical history of , hysterectomy, nicotine dependence multiple sclerosis. Patient does believe she was seen by leaf stamper in the past, but patient unsure of the details of her kidneys. Troponins have been negative 3. Chest x-ray completed showing normal chest. EKG completed showing sinus bradycardia with premature atrial complexes with aberrant conduction. Ultrasound of gallbladder completed showing thickened gallbladder folds with underlining sludge. No wall thickening or pericholecystic fluid identified. Simple cyst right kidney. At this time patient denies any chest pain or shortness of breath. Patient denies nausea vomiting or diarrhea. Patient denies any urinary burning or frequency. Surgical services and cardiology services consulted On 08/17/2017 patient is alert and oriented 3. Patient to undergo lap krishna today per surgical services. Patient still having some questions regarding surgical procedure. Surgical [employer] updated the patient would like to talk with surgical team. Nephrology services also consulted due to patient's elevated creatinine and body. Patient did have hyperkalemia yesterday. Was given Kayexalate. Creatinine improving to 1.59 and bun 22. Potassium 4.5. At this time patient denies chest pain or shortness breath. Patient denies nausea vomiting or diarrhea. Patient denies any urinary burning or frequency Objective - Vital Signs Vital signs: Vital Signs Temp 98.6 F 08/17/18 10:57 Pulse 98 08/17/18 10:57 Resp 16 08/17/18 10:57 BP 119/70 08/17/18 10:57 Pulse Ox 98 08/17/18 10:57 Intake & Output 08/16/18 08/17/18 08/17/18 18:59 06:59 18:59 Intake Total 200 Balance 200 Intake: Oral 200 Other: Voiding Method Toilet Toilet Toilet # Voids 1 2 - Exam Head normocephalic Neck supple Lungs clear to auscultation bilaterally no wheezing or crackles Heart regular rate and rhythm S1-S2, no rub or gallop Abdomen is soft nontender nondistended positive bowel sounds no hepatosplenomegaly Extremities no edema Neuro alert and orientated to 3 - Labs CBC & Chem 7: 08/17/18 06:11 08/17/18 06:11 Labs: Abnormal Lab Results - Last 24 Hours (Table) 08/17/18 08/17/18 Range/Units 06:11 06:11 RBC 3.74 L (3.80-5.40) m/uL Hgb 11.3 L (11.4-16.0) gm/dL Chloride 112 H (98-107) mmol/L BUN 22 H (7-17) mg/dL Creatinine 1.59 H (0.52-1.04) mg/dL Assessment and Plan Assessment: 1. Chest pain with epigastric pain. Troponins negative 3. Chest x-ray comple lon showing normal chest. EKG completed showing sinus bradycardia with premature atrial complexes with aberrant conduction. Cardiology services have been consulted. 2. Acute kidney injury. Creatinine 1.64 and bun 26. Patient reports she has seen a leaf stamper in the past but unsure for what exact issues. Continue normal saline at 75. Nephrology services have been consulted. Creatinine is improving to 1.59 and bun 22 3. Hyperkalemia. Potassium 5.2. Kayexalate has been ordered recheck today at 1400. Repeat potassium 4.5 4. History of multiple sclerosis. Patient denies seen any neurologist at this time. Reports she has seen one in the past 5. History of 6. History of nicotine dependence. Patient educated greater than 3 minutes on smoking patient. Nicotine patch has been ordered 7. Gallbladder dysfunction, ultrasound revealed thickened gallbladder fold with underlying sludge. Patient will undergo lap cholecystectomy with Dr. Hobbs today. DVT prophylaxis SCDs due to possible surgical evaluation. GI prophylaxis Protonix I performed an examination of the patient and discussed their management with the Nurse Practitioner. I have reviewed the Nurse Practitioner's notes and agree with the documented findings and plan of care
[2018-08-17] MEDS ORDERED: ROCURONIUM BROMIDE 10 MG/ML 10 ML VIAL IV ONE (11:57)
[2018-08-17] MEDS ORDERED: fentaNYL (PF) 50 MCG/ML 2 ML AMP ONE (11:57)
[2018-08-17] MEDS ORDERED: PROPOFOL 10 MG/ML 20 ML VIAL IV ONE (11:57)
[2018-08-17] MEDS ORDERED: SUCCINYLCHOLINE CHLORIDE 100 MG/5 ML SYR IV ONE (11:57)
[2018-08-17] MEDS ORDERED: NEOSTIGMINE 1 MG/ML 10 ML VIAL ONE (11:57)
[2018-08-17] MEDS ORDERED: GLYCOPYRROLATE 0.2 MG/ML 2 ML VIAL ONE (11:57)
[2018-08-17] MEDS ORDERED: MIDAZOLAM 2 MG/2 ML VIAL ONE (11:57)
[2018-08-17] MEDS ORDERED: LIDOCAINE 1% INJ 10MG/ML (20 ML MDV) ONE (11:57)
[2018-08-17] MEDS ORDERED: BUPIVACAIN-EPI 0.5%-1:200,000 30 ML VIAL SQ ONE (12:27)
[2018-08-17] MEDS: ceFAZolin IN SWFI 2 GM/20 ML SYRINGE IVP STA ×2 (12:27→12:29)
--- NOTE | 2018-08-17 12:42 | P.OP ---
Date of Procedure: 08/17/18 Preoperative Diagnosis: Cholecystitis Postoperative Diagnosis: Cholecystitis Procedure(s) Performed: Laparoscopic cholecystectomy Anesthesia: RIDGE Surgeon: Antonino Judge Estimated Blood Loss (ml): 5 Pathology: other (Gallbladder) Condition: stable Disposition: PACU Description of Procedure: The patient was placed on the operating table. The patient received a general endotracheal tube anesthesia. The patients abdomen was prepped and draped in the usual sterile fashion. Through an infraumbilical stab incision, the fascia of the anterior abdominal wall was grasped with a pair of Kochers and then the Veress needle was placed in the peritoneal cavity. Position of the Veress needle was confirmed with positive drop test. The abdomen was then insufflated. After adequate insufflation, the 10 mm trocar was placed in the peritoneal cavity. Following this the laparoscope was placed in the peritoneal cavity. The patient was placed in the head-up, right side up position and then a 5 mm trocar was placed in the right lateral and right subcostal position under direct visualization. A 8 mm trocar was placed in the epigastric position. The gallbladder was grasped in the fundus and infundibulum. Traction on the gallbladder was placed in the lateral and the cephalad positions. The triangle of Calot was visualized.. The cystic duct was bluntly dissected until the union of the cystic duct and common bile duct was seen. The cystic duct was then divided and sealed with the Harmonic scissors. A PDS Endoloop was then placed throughout the cystic duct stump. The cystic artery divided and sealed with the Harmonic scissors. The gallbladder was then removed from the liver bed using Harmonic scissors. The gallbladder was then extracted through the epigastric port site. Operative field was checked for any bleeding spots and Harmonic scissors was used to coagulate the liver bed. The abdomen was irrigated. The trocars were removed. The skin was closed using interrupted 3-0 Vicryl suture. Dermabond dressing were applied. The patient tolerated the procedure well.
[2018-08-17] MEDS ORDERED: LACTATED RINGERS 1,000 ML IV ONE (12:44)
[2018-08-17] MEDS: diphenhydrAMINE 50 MG/ML 1 ML VIAL IVP ONE ×2 (13:03→13:12)
[2018-08-17] MEDS: MEPERIDINE 50 MG/ML SYRINGE IVP ONE ×2 (13:12→13:20)
[2018-08-17] MEDS: HYDROmorphone 0.5 MG/0.5 ML SYRINGE IVP PRN ×3 (14:09→22:28)
[2018-08-17] MEDS: NICOTINE 14MG/24HR PATCH TRANSDERM SCH (14:10)
[2018-08-17] MEDS: HYDROcodone/APAP 7.5-325MG 1 EACH TAB PO PRN (15:00)
[2018-08-17 18:19] LABS: Appearance,Urine Clear (Clear); Bilirubin,Urine Negative (Negative); Blood,Urine Negative (Negative); Color,Urine Light Yellow; Glucose,Urine (UA) Trace (Negative); Ketones,Urine Negative (Negative); Leukocyte Esterase,Urine Negative (Negative); Nitrite,Urine Negative (Negative); PH, Urine 6.5 (5.0-8.0); Protein,Urine Trace (Negative); Specific Gravity,Urine 1.009 (1.001-1.035); Urobilinogen,Urine <2.0 mg/dL (<2.0)
--- NOTE | 2018-08-17 18:49 | US ---
EXAMINATION TYPE: US kidneys/renal and bladder DATE OF EXAM: 08/17/2018 COMPARISON: US for, CT 2017 CLINICAL HISTORY: rf. Renal failure. *Patient had abdominal surgery today. Limited study due to gas . Hx kidney stones. EXAM MEASUREMENTS: Right Kidney: 10.8 x 4.6 x 4.3 cm. Left Kidney: 8.4 x 4.8 x 4.0 cm. Post Void Residual Volume: Not performed Right Kidney: Hyperechoic renal parenchyma compared with the liver parenchyma. Distended upper collec ting system without antwon hydronephrosis, unchanged since yesterday's study. Left Kidney: Hyperechoic renal parenchyma compared with the splenic parenchyma. Two adjacent simple cystic areas visualized. Larger of the two measures: 1.5 x 1.4 x 1.5 cm. Echogenic focus seen with s hadowin.8 x 0.8 x 0.5 cm. Lower pole limited visibility due to gas. Lesion seen on CT 2017 not v isualized. Bladder: appears anechoic.Bilateral Jets seen: Yes. IMPRESSION: 1. NEGATIVE FOR OBSTRUCTIVE UROPATHY OR OTHER ACUTE PROCESS. 2. Hyperechoic renal parenchyma bilaterally and symmetrically consistent with chronic renal disease.
--- NOTE | 2018-08-17 22:37 | CONS ---
CONSULTATION REASON FOR CONSULT: Renal failure. HISTORY OF PRESENT ILLNESS: Patient is a 52-year-old female who was admitted to the hospital on 08/15/2018 with complaints of chest pain. The patient was found to have gallbladder sludge and she also complained of abdominal pain. The patient was evaluated by General surgery and had laparoscopic cholecystectomy done this afternoon. Currently, she is doing well. The patient states she has seen us in the office previously for chronic kidney disease. Her serum creatinine was 1.6 mg/dL on August 15. It as it is at 1.59 currently. At this time, I do not have the office labs available and there are no previous labs in the computer for comparison. The patient is maintained on IV fluids. She states she has been voiding. PAST MEDICAL HISTORY: Significant for chronic kidney disease, multiple sclerosis. PAST SURGICAL HISTORY: Hysterectomy, . SOCIAL HISTORY: Positive for smoking and use of marijuana. No history of other drug abuse. REVIEW OF SYSTEMS: As per HPI. Other systems negative. HOME MEDICATIONS: None. ALLERGIES: None. PHYSICAL EXAMINATION: Patient is currently comfortable. She denies any significant complaints except for abdominal discomfort. Blood pressure was 155/72, heart rate 46 per minute. She is afebrile. Examination of the heart S1, S2. Examination of the lungs bilateral breath sounds are heard. ABDOMEN: Soft, mildly tender. Incision is dressed. STUDENT AMBASSADOR exam is grossly intact. Examination of lower extremities shows no evidence of edema. LABS: Show sodium 142, potassium 4.5, chloride 112, BUN 22, serum creatinine 1.59, hemoglobin 11.3 g/dL. ASSESSMENT: 1. Chronic kidney disease. We will check office records for her baseline renal function and etiology. Continue with IV fluids for now. Most likely NKF stage III. 2. Cholecystitis with gallbladder sludge, status post laparoscopic cholecystectomy. 3. Mild hyperkalemia status post Kayexalate, currently improved. 4. History of multiple sclerosis. PLAN: Continue IV fluids. I will check our office records for her baseline renal function and previous workup. Check urinalysis. I will order an ultrasound if one has not been done lately in the office. Thank you for this consultation. We will continue to follow the patient with you during her hospitalization. MMODL / IJN: [id number] /
[2018-08-18] MEDS: SODIUM CHLORIDE 0.9% 1,000 ML IV SCH (03:36)
[2018-08-18] MEDS: HYDROmorphone 0.5 MG/0.5 ML SYRINGE IVP PRN ×2 (04:08→08:50)
[2018-08-18 06:07] LABS: Basophils % (A) 0 %; Eosinophils % (A) 1 %; HCT 32.7 % (34.0-46.0); HGB 10.7 gm/dL (11.4-16.0); Lymphocytes # (A) 1.5 k/uL (1.0-4.8); Lymphocytes % (A) 22 %; MCH 30.9 pg (25.0-35.0); MCHC 32.7 g/dL (31.0-37.0); MCV 94.5 fL (80.0-100.0); Mean Platelet Volume 7.3; Monocytes # (A) 0.6 k/uL (0-1.0); Monocytes % (A) 9 %; Neutrophils # (A) 4.8 k/uL (1.3-7.7); Neutrophils % (A) 67 %; Platelet Count 290 k/uL (150-450); RBC 3.46 m/uL (3.80-5.40); RDW 14.1 % (11.5-15.5); WBC 7.1 k/uL (3.8-10.6)
[2018-08-18 06:20] LABS: Albumin 3.4 g/dL (3.5-5.0); Calcium 9.2 mg/dL (8.4-10.2); Potassium 4.6 mmol/L (3.5-5.1); Total Bilirubin 0.6 mg/dL (0.2-1.3); Total Protein 6.3 g/dL (6.3-8.2)
[2018-08-18 07:21] VITALS: BP 117/71; PULSE 49; RESP 16; TEMP 98.6
[2018-08-18] MEDS: NICOTINE 14MG/24HR PATCH TRANSDERM SCH (08:00)
[2018-08-18] MEDS: PANTOPRAZOLE 40 MG/10 ML VIAL IV SCH (08:01)
[2018-08-18] MEDS: HYDROcodone/APAP 7.5-325MG 1 EACH TAB PO PRN ×2 (08:01→14:13)
[2018-08-18] MEDS: ASPIRIN 325 MG TAB PO SCH (08:01)
--- NOTE | 2018-08-18 13:36 | P.PN ---
Subjective Progress Note Date: 08/18/18 CHIEF COMPLAINT: Abdominal pain HISTORY OF PRESENT ILLNESS: The patient is status post laparoscopic cholecystectomy. Patient reports her pain is tolerable. Tolerating diet. Denies nausea or vomiting. PHYSICAL EXAM: VITAL SIGNS: Reviewed. GENERAL: Well-developed in no acute distress. HEENT: No sclera icterus. Extraocular movements grossly intact. Moist buccal mucosa. Head is atraumatic, normocephalic. ABDOMEN: Soft. Nondistended. Nontender. Surgical incision sites clean and dry without drainage NEUROLOGIC: Alert and oriented. Cranial nerves II through XII grossly intact. ASSESSMENT: 1. Acute cholecystitis, status post laparoscopic cholecystectomy PLAN: Pain control. Activity as tolerated. Incentive spirometry. Patient is stable for discharge home today from a surgical standpoint. Patient to follow up in one week. Nurse practitioner note has been reviewed by physician. Signing provider agrees with the documented findings, assessment, and plan of care. Objective - Vital Signs Vital signs: Vital Signs Temp 98.6 F 08/18/18 07:00 Pulse 49 L 08/18/18 07:00 Resp 16 08/18/18 07:00 BP 117/71 08/18/18 07:00 Pulse Ox 96 08/18/18 07:00 Intake & Output 08/17/18 08/18/18 08/18/18 18:59 06:59 18:59 Intake Total 1959 340 Output Total 5 Balance 1954 340 Intake: IV 1300 Oral 660 240 Other 100 Output: Estimated Blood Loss 5 Other: Voiding Method Toilet Toilet Toilet # Voids 1 - Labs CBC & Chem 7: 08/18/18 05:40 08/18/18 05:40 Labs: Abnormal Lab Results - Last 24 Hours (Table) 08/17/18 08/18/18 08/18/18 Range/Units 18:10 05:40 05:40 RBC 3.46 L (3.80-5.40) m/uL Hgb 10.7 L (11.4-16.0) gm/dL Hct 32.7 L (34.0-46.0) % Chloride 109 H (98-107) mmol/L BUN 20 H (7-17) mg/dL Creatinine 1.73 H (0.52-1.04) mg/dL Glucose 126 H (74-99) mg/dL Albumin 3.4 L (3.5-5.0) g/dL Urine Protein Trace H (Negative) Urine Glucose (UA) Trace H (Negative)
--- NOTE | 2018-08-18 14:45 | P.DS ---
Providers Date of admission: 08/15/18 15:08 Expected date of discharge: 08/18/18 Attending physician: Mali Rodriguez Consults: 08/15/18 15:08 Consult Physician Routine Consulting Provider: Wilder Walker Consult Reason/Comments: Chest pain Do you want consulting provider notified?: Yes 08/16/18 09:11 Consult Physician Routine Consulting Provider: Antonino Judge Consult Reason/Comments: sludge in gallbladder, epi pain Do you want consulting provider notified?: Already Contacted 08/16/18 12:37 Consult Physician Routine Consulting Provider: Renae Loya Consult Reason/Comments: elevated creatinine, questionable history of CKD Do you want consulting provider notified?: Yes Primary care physician: Heide Ocampo Hospital Course: Discharge diagnosis 1. Chest pain with epigastric pain. Troponins negative 3. Chest x-ray completed showing normal chest. EKG completed showing sinus bradycardia with premature atrial complexes with aberrant conduction. Cardiology services have been consulted. 2. Acute on chronic kidney disease. Creatinine 1.64 and bun 26. Patient reports she has seen a wildlife science professor in the past but unsure for what exact issues. Ultrasound of kidneys renal and bladder completed showing negative for obstructive uropathy or other acute process. Hyperechoic renal parenchyma bilaterally and symmetrically consistent with chronic renal disease. Creatinine 1.73 and bun 20. Per nursing staff patient has been cleared for discharge from nephrology standpoint. Patient will follow-up in office in one week. Will or rhonda CMP for 2 days 3. Cholecystitis. Status post lap cholecystectomy. Patient is currently postop day 1. Patient has been cleared for discharge from cervical services. 4. History of multiple sclerosis. Patient denies seen any neurologist at this time. Reports she has seen one in the past 5. History of 6. History of nicotine dependence. Patient educated greater than 3 minutes on smoking patient. Nicotine patch has been ordered 7. Hyperkalemia. Potassium 5.2. Kayexalate has been ordered recheck today at 1400. Repeat potassium 4.5 Hospital course This is a 52-year-old female patient of Dr. Ocampo. Patient presented to the ER with complaints of lightheadedness and upper gastric chest pain. Patient reports that symptoms started approximately 2 hours before arriving to ER was consistent. Patient reports the pain felt like a pressure and radiated under her rib cage to back. Patient does reports she had some nausea with episode. P atient denies any diaphoresis. She denies any recent cough or illness. Patient denies any significant cardiac history for herself. Patient denies any family history of heart attacks or cardiac conditions. Patient denies any history of blood clots. Patient does have a past medical history of , hysterectomy, nicotine dependence multiple sclerosis. Patient does believe she was seen by wildlife science professor in the past, but patient unsure of the details of her kidneys. Troponins have been negative 3. Chest x-ray completed showing normal chest. EKG completed showing sinus bradycardia with premature atrial complexes with aberrant conduction. Ultrasound of gallbladder completed showing thickened gallbladder folds with underlining sludge. No wall thickening or pericholecystic fluid identified. Simple cyst right kidney. At this time patient denies any chest pain or shortness of breath. Patient denies nausea vomiting or diarrhea. Patient denies any urinary burning or frequency. Surgical services and cardiology services consulted On 08/17/2018 patient is alert and oriented 3. Patient to undergo lap krishna today per surgical services. Patient still having some questions regarding surgical procedure. Surgical MANAGER OF TRANSPORTATION updated the patient would like to talk with surgical team. Nephrology services also consulted due to patient's elevated creatinine and body. Patient did have hyperkalemia yesterday. Was given Kayexalate. Creatinine improving to 1.59 and bun 22. Potassium 4.5. At this time patient denies chest pain or shortness breath. Patient denies nausea vomiting or diarrhea. Patient denies any urinary burning or frequency On 08/18/2018. Patient's alert and oriented 3. Patient is status post lap krishna postop day 1. patient expresses she is very eager to go home Patient has been cleared for discharge from surgical standpoint. Creatinine also increasing to 1.73 and bun 20. Patient was evaluated by nephrology services. Patient has been cleared for discharge from nephrology standpoint. Ultrasound of kidneys renal and bladder completed showing negative for obstructive uropathy or other acute process. A CMP will be ordered for 2 days. Patient to follow-up outpatient with nephrology services. At this time patient denies chest pain or shortness of breath. Patient denies nausea vomiting or diarrhea. Patient denies any urinary burning or frequency I performed an examination of the patient and discussed their management with the Nurse Practitioner. I have reviewed the Nurse Practitioner's notes and agree with the documented findings and plan of care Patient Condition at Discharge: Stable Plan - Discharge Summary Discharge Rx Participant: No New Discharge Prescriptions: New Hydrocodone/Acetaminophen [[place] 5-325] 1 tab PO Q4HR PRN 3 Days #18 tab PRN Reason: Pain No Action prednisoLONE [prednisoLONE Oral Soln] 1 drop BOTH EYES Q2H PRN PRN Reason: Eye Irritation Discharge Medication List prednisoLONE [prednisoLONE Oral Soln] 1 drop BOTH EYES Q2H PRN 08/15/18 [History] Hydrocodone/Acetaminophen [[place]ayer 5-325] 1 tab PO Q4HR PRN 3 Days #18 tab 08/18/18 [Rx] Follow up Appointment(s)/Referral(s): Heide Ocampo MD [Primary Care Provider] - 1-2 days Hugo Yi MD [STAFF PHYSICIAN] - 2 Weeks Antonino Judge MD [STAFF PHYSICIAN] - 1 Week Rneae Loya MD [STAFF PHYSICIAN] - 1 Week Activity/Diet/Wound Care/Special Instructions: No driving while taking Thayer No lifting over 10 pounds You may shower. No soaking or tub baths Very light activity until you are reevaluated at your follow up appointment with your surgeon Discharge Disposition: HOME SELF-CARE
--- NOTE | 2018-08-18 23:06 | PN ---
PROGRESS NOTE The patient is seen for followup for chronic kidney disease. She has been maintained on IV fluids. The patient is status post laparoscopic cholecystectomy. Her creatinine is at 1.7, which is up from 1.59 from yesterday. The patient has had good urine output. UA is fairly benign and ultrasound of the kidneys did not show any evidence of obstructive uropathy. Simple cysts are noted in the left kidney. The etiology is possibly underlying nephrosclerosis versus chronic interstitial nephropathy. The patient needs to follow up as outpatient. Her creatinine is slightly higher today. However, she has no other complaints and she has had good urine output. The patient is not on any nephrotoxic medications. She can be discharged with plans to follow up as outpatient. ASSESSMENT: 1. Chronic kidney disease. 2. Chest pain on initial admission, currently resolved. 3. History of multiple sclerosis. PLAN: Okay to discharge patient. Follow up as outpatient in about 1-2 weeks. MMODL / IJN: [id number] /
[2018-08-19] MEDS ORDERED: PANTOPRAZOLE 40 MG TABLET PO SCH (07:30)
== END 2018-08-18 15:36 | disposition home or self-care (01) ==
LOC: EC 12:38 → 1SOBS 15:08
PROVIDERS: ADMIT Internal Medicine; ATTEND Internal Medicine
DX: K81.2 Acute cholecystitis with chronic cholecystitis (principal); I49.1 Atrial premature depolarization; R07.89 Other chest pain; N17.9 Acute kidney failure, unspecified; N18.9 Chronic kidney disease, unspecified; E87.5 Hyperkalemia; G35 Multiple sclerosis; N28.1 Cyst of kidney, acquired; F17.210 Nicotine dependence, cigarettes, uncomplicated; F12.90 Cannabis use, unspecified, uncomplicated; Z90.710 Acquired absence of both cervix and uterus
CPT/HCPCS: 47562; 99285; 36415; 93005; 88304; 83880; 80053 ×4; 83690; 83735; 84132; 84484 ×2; 85025 ×4; 85610; 85730; 81003; 71046; 76770; 76705; G0378 ×4; S4990 ×2; J2250; J1200; J1644; J1100; J2710; J2175; J2405; J2001; J3010; J0330; J2704; C9113 ×2; J1170 ×2; J0690

== ENCOUNTER 2018-10-23 14:51 | Emergency (ER) | payer OTHER ==
[2018-10-23 15:11] VITALS: BP 127/82; PULSE 67; RESP 18; TEMP 98.3
[2018-10-23] MEDS ORDERED: LIDOCAINE 1% INJ 10MG/ML (20 ML MDV) SQ ONE (15:57)
[2018-10-23] MEDS ORDERED: DIPH,PERTUS(ACELL)TETVAC-LF 0.5 ML VIAL IM ONE (16:11)
[2018-10-23] MEDS ORDERED: IBUPROFEN 600 MG TAB PO STA (16:56)
--- NOTE | 2018-10-23 17:27 | ED ---
General Adult HPI - General Chief complaint: Wound/Laceration Stated complaint: Finger Lac Time Seen by Provider: 10/23/18 15:57 Source: patient Mode of arrival: ambulatory Limitations: no limitations - History of Present Illness Initial comments: Patient is a 52-year-old female presenting to emergency Department with a laceration to the fifth digit of her left hand. Patient reports incident happened an hour ago when she was cutting cardboard with a knife and lacerated finger. Patient reports the pain is 6 and is exacerbated with movement and zaida viated with rest. Patient is unaware of her tetanus status. Patient denies any numbness or tingling, nausea, vomiting. Patient reports limited range of motion due to pain. Patient reports pain is throbbing in nature. Patient reports the laceration was conducted with a clean knife no foreign bodies were noted. - Related Data Home Medications Medication Instructions Recorded Confirmed prednisoLONE [prednisoLONE Oral 1 drop BOTH EYES Q2H PRN 08/15/18 08/15/18 Soln] Previous Rx's Medication Instructions Recorded Hydrocodone/Acetaminophen [[place] 1 tab PO Q4HR PRN 3 Days #18 tab 08/18/18 5-325] Allergies Allergy/AdvReac Type Severity Reaction Status Date / Time No Known Allergies Allergy Verified 10/23/18 15:11 Review of Systems ROS Statement: Those systems with pertinent positive or pertinent negative responses have been documented in the HPI. ROS Other: All systems not noted in ROS Statement are negative. Past Medical History Additional Past Medical History / Comment(s): MS History of Any Multi-Drug Resistant Organisms: None Reported Past Surgical History: Section, Cholecystectomy, Hysterectomy Past Psychological History: No Psychological Hx Reported Smoking Status: Current every day smoker Past Alcohol Use History: None Reported Past Drug Use History: Marijuana General Exam Limitations: no limitations General appearance: alert, in no apparent distress Head exam: Present: atraumatic, normocephalic, normal inspection Eye exam: Present: normal appearance, PERRL, EOMI Pupils: Present: normal accommodation ENT exam: Present: normal exam Neck exam: Present: normal inspection Respiratory exam: Present: normal lung sounds bilaterally Cardiovascular Exam: Present: regular rate, normal rhythm, normal heart sounds Extremities exam: Present: full ROM, normal capillary refill, other (1 cm Laceration along the lateral aspect of the fifth left digit. No erythema or swelling in the region. +2 radial and ulnar pulses.) Neurological exam: Present: alert, oriented X3 Psychiatric exam: Present: normal affect, normal mood Skin exam: Present: warm, intact, normal color Course Vital Signs 10/23/18 15:08 Temperature 98.3 F Pulse Rate 67 Respiratory 18 Rate Blood Pressure 127/82 O2 Sat by Pulse 98 Oximetry Procedures - Laceration Laceration #1 Consent Obtained: verbal consent Indication: laceration Site: hand (Fifth digit) Size (cm): 1 Description: linear, avulsion Anesthetic Used: lidocaine 1% Anesthesia Technique: local infiltration Amount (mls): 10 Pre-repair: irrigated extensively Type of Sutures: nylon Size of Sutures: 4-0 Number of Sutures: 3 Technique: simple, interrupted Patient Tolerated Procedure: well Medical Decision Making - Medical Decision Making Patient is a 52-year-old female presents emergency department for a laceration on the left fifth digit. Patient was given tetanus prophylaxis and ibuprofen for pain control. Laceration site was repaired with 3 sutures. Patient advised to return for suture removal after 10 days. Patient advised to return to the emergency department sooner if symptoms worsen. Patient is to follow primary care. Patient advised to follow proper wound care instructions. Case is discussed with physician. Disposition Clinical Impression: Laceration Disposition: HOME SELF-CARE Condition: Stable Instructions (If sedation given, give patient instructions): Laceration (DC) Additional Instructions: Please follow proper wound care instructions. Please return to emergency department for suture removal in 10 days or sooner if symptoms worsen Is patient prescribed a controlled substance at d/c from ED?: No Referrals: Heide Ocampo MD [Primary Care Provider] - 1-2 days Time of Disposition: 17:27
== END 2018-10-23 17:44 | disposition home or self-care (01) ==
LOC: EC 14:51
DX: S61.217A Laceration without foreign body of left little finger without damage to nail, initial encounter (principal); F17.200 Nicotine dependence, unspecified, uncomplicated; Z23 Encounter for immunization; W26.0XXA Contact with knife, initial encounter; Y93.89 Activity, other specified
CPT/HCPCS: 90715; 99282; 12001; 90471; J2001

== ENCOUNTER 2020-02-05 15:38 | Emergency (ER) | payer OTHER ==
[2020-02-05] MEDS ORDERED: ACET/COD 300 MG/30 MG STARTER PACK 6 TAB BTL PO STA (17:17)
[2020-02-05] MEDS ORDERED: predniSONE 50 MG TAB PO STA (17:17)
--- NOTE | 2020-02-05 17:17 | ED ---
Recheck HPI - General Chief Complaint: Recheck/Abnormal Lab/Rx Stated Complaint: hip & ankle pain Time Seen by Provider: 02/05/20 15:59 Source: patient Mode of arrival: ambulatory Limitations: no limitations - History of Present Illness Initial Comments: 54-year-old female presenting today for chief complaint of electrical shock and left groin and right ankle history of MS. Patient denies any back pain. She states that she's been experiencing on and off "shock for the past day. Patient states occurrences happen. Patient denies any leg swelling chest pain shortness of breath she denies abdominal pain nausea vomiting she denies any weakness or visual changes denies new diplopia or headaches. Patient states she is bringing her son in for evaluation of wrist pain and thought that she would mention this and sinus as a patient. Patient denies a current steroid use her medications use trauma she states that she believes her MS is relapsing remitting. Remaining review of systems negative patient's Ramirez appears well nontoxic on arrival - Related Data Home Medications Medication Instructions Recorded Confirmed prednisoLONE [prednisoLONE Oral 1 drop BOTH EYES Q2H PRN 08/15/18 08/15/18 Soln] Previous Rx's Medication Instructions Recorded Hydrocodone/Acetaminophen [[place] 1 tab PO Q4HR PRN 3 Days #18 tab 08/18/18 5-325] predniSONE 50 mg PO DAILY 4 Days #4 tab 02/05/20 Allergies Allergy/AdvReac Type Severity Reaction Status Date / Time No Known Allergies Allergy Verified 02/05/20 15:48 Review of Systems ROS Statement: Those systems with pertinent positive or pertinent negative responses have been documented in the HPI. ROS Other: All systems not noted in ROS Statement are negative. Past Medical History Past Medical History: No Reported History Additional Past Medical History / Comment(s): MS History of Any Multi-Drug Resistant Organisms: None Reported Past Surgical History: Section, Cholecystectomy, Hysterectomy Additional Past Surgical History / Comment(s): eye surgery Past Psychological History: No Psychological Hx Reported Smoking Status: Current every day smoker Past Alcohol Use History: None Reported Past Drug Use History: Marijuana General Exam - General Exam Comments Initial Comments: General: The patient is awake and alert, in no distress Eye: +3mm pupils are equal, round and reactive to light, extra-ocular movements are intact. No nystagmus. There is normal conjunctiva bilaterally. No signs of icterus. Ears, nose, mouth and throat: There are moist mucous membranes and no oral lesions. Neck: The neck is supple, there is no tenderness or JVD. Gastrointestinal: Soft, non-distended, non-tender abdomen without masses or organomegaly noted. There is no rebound or guarding present. Musculoskeletal: Normal ROM, no tenderness. Strength 5/5 of the LE b/l. Sensation intact. Femoral DP and radial pulses equal bilaterally 2+. Neurological: A&O x 3. CN II-XII intact grossly, There are no obvious motor or sensory deficits. Coordination appears grossly intact. Speech is normal. Skin: Skin is warm and dry and no rashes or lesions are noted. Psychiatric: Cooperative, appropriate mood & affect, normal judgment. Limitations: no limitations Course Vital Signs 02/05/20 02/05/20 15:45 17:50 Temperature 97.9 F 98 F Pulse Rate 90 70 Respiratory 18 16 Rate Blood Pressure 102/53 154/70 O2 Sat by Pulse 99 98 Oximetry Medical Decision Making - Medical Decision Making Pt states she is here for pain control. History of MS. no pain currently but has on off " electric shocks" in hips, groin and right ankle. Denies back pain, also bowel bladder control urinary retention denies falls or injury. No leg swelling neurovascularly intact without weakness Patient is currently off all steroids. Patient be prescribed a short burst of steroids as well as tunnel 3 starter pack she is to follow-up with primary care provider and return for worsening symptoms case discussed with Dr. Chacon who is agreeable to care plan discharge Disposition Clinical Impression: Left hip pain, Right ankle pain Disposition: HOME SELF-CARE Condition: Good Instructions (If sedation given, give patient instructions): Multiple Sclerosis (DC) Additional Instructions: Please use medication as discussed. Please follow-up with family doctor in the next 2 days. Please return to emergency room if the symptoms increase or worsen or for any other concerns. Prescriptions: predniSONE 50 mg PO DAILY 4 Days #4 tab Is patient prescribed a controlled substance at d/c from ED?: No Referrals: Heide Ocampo MD [Primary Care Provider] - 1-2 days Time of Disposition: 17:29
[2020-02-05 17:51] VITALS: BP 154/70; PULSE 70; RESP 16; TEMP 98
== END 2020-02-05 17:50 | disposition home or self-care (01) ==
LOC: EC 15:38
DX: M25.571 Pain in right ankle and joints of right foot (principal); M25.552 Pain in left hip; G35 Multiple sclerosis; F17.200 Nicotine dependence, unspecified, uncomplicated; Z79.52 Long term (current) use of systemic steroids
CPT/HCPCS: 99283; J7512